=== PATIENT | female | born 1965 | race Caucasian/White ===

== ENCOUNTER → 2019-12-18 | Day surgery (SDC) | payer OTHER ==
[2019-12-14 10:46] VITALS: BMI 18.1
[~2019-12-18] MED LIST: GLYCOPYRROLATE 0.2 MG/ML 2 ML VIAL ONE; KETOROLAC 15 MG/ML 1 ML VIAL IVP ONE; KETOROLAC 15 MG/ML 1 ML VIAL ONE; LACTATED RINGERS 1,000 ML IV SCH; LIDOCAINE 1% (10MG/ML) FOR IV START INTRADERMA PRN; MIDAZOLAM 2 MG/2 ML VIAL IV PRN; ONDANSETRON 4 MG/2 ML VIAL IVP ONE; ONDANSETRON 4 MG/2 ML VIAL ONE; PROPOFOL 10 MG/ML 20 ML VIAL IV ONE; fentaNYL (PF) 50 MCG/ML 2 ML AMP ONE
[2019-12-18 08:28] VITALS: TEMP 98
--- NOTE | 2019-12-18 09:41 | P.PCN ---
Date of Procedure: 12/11/19 Description of Procedure: BRIEF HISTORY: Patient is a 54-year-old female presenting for outpatient colonoscopy for screening for malignant neoplasm of the colon. No prior colonoscopy. No change in bowel habits, abdominal pain or blood per rectum reported. PROCEDURE PERFORMED: Colonoscopy with polypectomy. PREOPERATIVE DIAGNOSIS: Screening for malignant neoplasm of the colon, no prior colonoscopy. ESTIMATED BLOOD LOSS: Minimal. IV sedation per Anesthesia. PROCEDURE: After informed consent was obtained, the patient, was brought into the endoscopy unit. IV sedation was administered by Anesthesia under continuous monitoring. Digital rectal examination was normal. Initially the Olympus CF-190 flexible video colonoscope was then inserted in the rectum, gradually advanced into the cecum without any difficulty. Careful examination was performed as the scope was gradually being withdrawn. Ileocecal valve and the appendiceal orifice were visualized and appeared normal. Prep was excellent. Mucosa of the cecum, ascending colon, transverse colon, descending colon, sigmoid colon, and rectum appeared normal. Diminutive polyps measuring 2-3 mm in size removed with cold forcep polypectomy, 2 from the descending colon and one from the rectum.Retroflexion was performed in the rectum and no lesions were seen. The patient tolerated the procedure well. IMPRESSION: 3 diminutive polyps removed with cold forcep polypectomy, 2 from the descending colon and one from the rectum. RECOMMENDATIONS: Findings of this examination were discussed with the patient and her . Okay to resume diet. Okay to resume medication. Await pathology from polypectomy. Would recommend a repeat colonoscopy in 5 years for colon polyp pathology from polypectomies.
[2019-12-18 09:55] VITALS: RESP 20
[2019-12-18 10:57] VITALS: BP 102/66; PULSE 75
== END ==
LOC: ORWHC2ENDO 08:04
PROVIDERS: ATTEND Internal Medicine
DX: Z12.11 Encounter for screening for malignant neoplasm of colon (principal); K63.5 Polyp of colon; K62.1 Rectal polyp; F17.210 Nicotine dependence, cigarettes, uncomplicated; Z98.890 Other specified postprocedural states; Z79.1 Long term (current) use of non-steroidal anti-inflammatories (NSAID); Z88.0 Allergy status to penicillin
CPT/HCPCS: 88305; 45380; J2405; J1885; J2704

== ENCOUNTER → 2023-08-05 | Outpatient (CLI) | payer OTHER ==
--- NOTE | 2023-08-07 19:41 | CT ---
EXAMINATION TYPE: CT angio thor/abd pel aorta CT DLP: 606.10 mGycm, Automated exposure control for dose reduction was used. DATE OF EXAM: 08/05/2023 9:01 AM COMPARISON: None. CLINICAL INDICATION:Female, 58 years old with history of Z82.49 FAMILY HX OF ISCHEM HEART DIS AND OTH DIS O; PHH, Family hx of ischemic heart disease and other diseases, family hx aortic aneurysm TECHNIQUE: Multiple axial CT images of the chest, abdomen, and pelvis were obtained prior and to the administration of 100 mL of Isovue-370 IV contrast. 3-D reformats and maximum intensity projection fo rmat were performed on a separate workstation of the aorta. FINDINGS: VASCULATURE: The thoracic aorta is normal in course. Minimal atherosclerotic calcification of the aor tic arch. There is no evidence of aortic dissection, aneurysm or acute aortic injury. No evidence of intramural hematoma. The descending thoracic aorta measures up to 2.3 cm. Aortic root ectasia measure s up to 4.3 cm (series 6, image 85). The ascending thoracic aorta measures up to 3.4 cm. The abdomina l aorta measures up to 1.5 cm. Great arch vessels patent and normal in course and caliber. No evidenc e for pulmonary embolism. Lungs/pleura: No pleural effusion, pneumothorax, focal consolidation. Mild bilateral upper lobe predo minant centrilobular and paraseptal emphysematous changes. No suspicious pulmonary nodule or mass. Heart: Within normal limits. Minimal coronary arterial calcifications. Mediastinum: No gross evidence of adenopathy. Lower Neck: No significant findings. Abdomen: Liver: Unremarkable. Gallbladder and Bile ducts: Unremarkable. Pancreas: Unremarkable. Spleen: Unremarkable. Adrenal glands: Unremarkable. Kidneys and Ureters: Unremarkable. No hydronephrosis. Stomach and Bowel: Unremarkable. No evidence of bowel obstruction. The appendix is within normal sher its. Peritoneum: No evidence of pneumoperitoneum, free fluid, or adenopathy. Bladder: Unremarkable. Reproductive: Unremarkable. Abdominal wall/soft tissues: Unremarkable. Musculoskeletal: The osseous structures appear intact. IMPRESSION: 1. 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 No evidence for aortic dissection. 2. Mild COPD changes.
== END | disposition home or self-care (01) ==
LOC: RADCTMAIN 07:42
PROVIDERS: ATTEND Internal Medicine Cardiovascular Disease
DX: J44.9 Chronic obstructive pulmonary disease, unspecified (principal); I77.810 Thoracic aortic ectasia; Z82.49 Family history of ischemic heart disease and other diseases of the circulatory system
CPT/HCPCS: 71275; 74174; Q9967